=== PATIENT | female | born 1955 | race Caucasian/White ===

== ENCOUNTER 2019-04-06 20:14 | Emergency (ER) | payer OTHER ==
[~2019-04-06] VITALS: Ht 152.4 cm; Wt 54.4 kg
[2019-04-06] MEDS ORDERED: Norco 10-325 T1 EACH PO (20:53)
[2019-04-06] MEDS ORDERED: ATEN25 PO (20:53)
[2019-04-06] MEDS ORDERED: Roxicodone5 MG PO (21:32)
[2019-04-06] MEDS ORDERED: LORA2 PO (21:32)
== END 2019-04-06 22:02 | disposition home or self-care (01) ==
LOC: ER 20:14
DX: S39.012A Strain of muscle, fascia and tendon of lower back, initial encounter (principal); S70.01XA Contusion of right hip, initial encounter; S40.812A Abrasion of left upper arm, initial encounter; S80.812A Abrasion, left lower leg, initial encounter; I10 Essential (primary) hypertension; V89.2XXA Person injured in unspecified motor-vehicle accident, traffic, initial encounter
CPT/HCPCS: 72100; 73502; 99284-25; A9270